=== PATIENT | female | born 1975 | race Caucasian/White ===

== ENCOUNTER 2017-07-27 18:23 | Emergency (ER) | payer MEDICAID, SELFPAY | END 2017-07-27 19:37 | disposition home or self-care (01) | PROVIDERS: Emergency Provider Emergency Medicine; Visit Provider Emergency Medicine | DX: S22.31XA Fracture of one rib, right side, initial encounter for closed fracture (principal); W10.9XXA Fall (on) (from) unspecified stairs and steps, initial encounter; Y92.018 Other place in single-family (private) house as the place of occurrence of the external cause; Z88.0 Allergy status to penicillin; Z72.0 Tobacco use | CPT/HCPCS: 71020; 71101; 99282 ==

== ENCOUNTER → 2017-09-01 09:32 | Outpatient (REF) | payer MEDICAID, SELFPAY ==
[2017-09-01 14:57] LABS: Basophils % 0.3 % (0.1-2.0); Eosinophils # 0.2 K/mm3 (0.0-0.4); Hematocrit 41.1 % (37.0-47.0); Hemoglobin 13.3 g/dL (12.2-16.2); Lymphocytes # 1.4 K/mm3 (0.7-4.5); Lymphocytes % 17.7 K/mm3 (10-50); Mean Corpuscular HGB Conc 32.4 g/dL (31.8-35.4); Mean Corpuscular Hemoglobin 30.1 pg (27.0-31.2); Mean Corpuscular Volume 92.7 fl (81-99); Mean Platelet Volume 7.8 fl (7.4-10.4); Monocytes # 0.4 K/mm3 (0.1-1.0); Monocytes % 4.7 % (1.7-9.3); Neutrophils # 6.1 K/mm3 (1.8-7.8); Neutrophils % 75.3 % (37.0-80.0); Platelet Count 367 K/mm3 (142-424); Red Blood Count 4.43 M/mm3 (4.20-5.40); Red Cell Distribution Width 12.2 % (11.5-17.5); White Blood Count 8.1 K/mm3 (4.8-10.8)
[2017-09-01 15:20] LABS: Hemoglobin A1C 5.5 % (0.0-7.0)
[2017-09-01 15:46] LABS: Erythrocyte Sedimentation Rate 109 mm/hr (0-20)
[2017-09-01 15:53] LABS: Alanine Aminotransferase 34 U/L (12-78); Albumin Level 3.1 gm/dL (3.4-5.0); Albumin/Globulin Ratio 0.6 (1.1-1.8); Alkaline Phosphatase 97 U/L (46-116); Anion Gap 12.9 mEq/L (5-15); Aspartate Amino Transferase 26 U/L (15-37); Bilirubin,Total 0.3 mg/dL (0.2-1.0); Blood Urea Nitrogen 8 mg/dL (7-18); Calcium 8.9 mg/dL (8.5-10.1); Carbon Dioxide 27 mmol/L (21.0-32.0); Chloride 101 mmol/L (98-107); Chol/HDL Ratio 3.6 (1-3.5); Cholesterol 162 mg/dL (140-200); Creatinine,Serum 0.81 mg/dL (0.55-1.02); Estimated Glomerular Filt Rate 78 ml/min (>60); Free T4 (Free Thyroxine) 1.27 ng/dl (0.76-1.46); GFR (African American) 95 ML/MIN (>60); Globulin 4.8 gm/dl (1.3-3.2); Glucose 107 mg/dL (74-106); HDL Cholesterol 45 mg/dL (29-89); LDL Cholesterol 100 mg/dL (0-130); Potassium 3.9 mmoL/L (3.5-5.1); Sodium 137 mmol/L (136-145); Thyroid Stimulating Hormone 3.63 uIU/ml (0.358-3.740); Total Protein,Serum 7.9 gm/dL (6.4-8.2); Triglycerides 85 mg/dL (30-200); VLDL Cholesterol 17 mg/dL (0-40)
[2017-09-02 18:31] LABS: Vitamin D 25 Hydroxy 21.5 ng/mL (30.0-100.0)
[2017-09-04 11:14] LABS: Anti-Jo-1 <0.2 AI (0.0-0.9); Anti-Smith Antibody <0.2 AI (0.0-0.9); Antichromatin Antibodies <0.2 AI (0.0-0.9); Antiscleroderma-70 Antibodies <0.2 AI (0.0-0.9); RNP Antibodies <0.2 AI (0.0-0.9); Sjogren's Anti-SS-A <0.2 AI (0.0-0.9); Sjogren's Anti-SS-B <0.2 AI (0.0-0.9)
[2017-09-04 18:09] LABS: Anti-Centromere B Antibodies <0.2 AI (0.0-0.9); Anti-Cyclic Citrullinated Pept >250 units (0-19); Anti-DNA (DS) Ab Qn 15 IU/mL (0-9)
== END ==
LOC: LAB 09:32
PROVIDERS: Visit Provider Nurse Practitioner Family
DX: M79.1 Myalgia (principal); R53.83 Other fatigue
CPT/HCPCS: 80053; 80061; 82652; 83036; 84439; 84443; 85025; 85651; 86038; 86431

== ENCOUNTER 2020-04-10 10:52 | Emergency (ER) | payer OTHER, SELFPAY ==
[2020-04-10 10:53] VITALS: BP 107/80; PULSE 109; RESP 18; TEMP 36.7; O2SAT 100; BMI 22.1
[2020-04-10 11:02] VITALS: BMI 20.7
--- NOTE | 2020-04-10 11:02 | CT_ITS ---
PROCEDURE: CT ABDOMEN PELVIS W CON CLINICAL INDICATION: ABD PAIN, right lower quadrant pain COMPARISON: CT ABDPELW CT ABD PELVIS W/ CONTRAST from 05/03/2016 TECHNIQUE: IV Contrast: 75ML OPTIRAY 350 Oral Contrast none given Axial images obtained with sagittal and coronal reformats. All CT scans at the facility use one or more dose reduction, viz: automated exposure control, ma/kV adjustment per patient size (including targeted exams where dose is matched to indication, i.e. head), or iterative reconstruction technique. FINDINGS: Lower thorax: No acute finding, cardiac size is normal. ABDOMEN: Liver: No masses or biliary dilatation. Gallbladder: Nondistended. No radio opaque stones. Pancreas: No masses or peripancreatic fluid collections. Spleen: unremarkable Adrenals: unremarkable Kidneys/ureters: The kidneys are normal in size and show symmetrical function both appearing normal. ABDOMEN & PELVIS: Stomach bowel: The stomach and duodenal sweep appear normal. The small bowel appears normal. There is a moderately large amount of stool in the ascending colon hepatic flexure and transverse colon. The descending and sigmoid colon are somewhat decompressed. Peritoneum: No abnormal fluid collections. No obvious inflammatory changes. No free air. Lymph nodes: No enlarged lymph nodes apparent. Vasculature: No evidence of abdominal aortic aneurysm. No retroperitoneal hemorrhage evident. Bones: No acute fracture PELVIS: Reproductive: The uterus is upper limits of normal in size and shows slightly heterogenic enhancement. There is a cystic lesion right adnexa measuring 2.8 x 3.2 x 2.9 cm likely an ovarian cyst. There are bilateral tubal ligation clips. Bladder: The urinary bladder is decompressed. There is no free fluid in the pelvis. Appendix: There are no findings to suggest appendicitis. IMPRESSION: Moderate amount right-sided stool, small right ovarian cyst, no other significant abnormality noted Dictated by: Dr. Woody Shelton MD 04/10/2020 12:27 Dr. Woody Shelton MD in [place] 04/10/2020 12:27
--- NOTE | 2020-04-10 11:02 | HMH.EDGENADL ---
ED Disposition Clinical Impression: Pyelonephritis, Ruptured ovarian cyst Disposition: Home, Self-Care Condition on Discharge: Good Additional Instructions: You were seen on an emergency basis. It is very important that you follow up with your primary care provider and/or specialist as we discussed within 2 days. All labs and imaging were obtained and interpreted here to rule out life threatening emergencies, but your final results should be reviewed by your primary doctor at your follow up appointment. Please return to the emergency department if any of your symptoms worsen, or if they do not improve as we discussed. Please follow-up with your sales lead generator on Monday as we discussed Prescriptions: Cefdinir [Omnicef 300mg Capsule] 300 mg PO BID #20 cap Transmission Status: Pending to [facility] #[id number] Referrals: Ankit Corley MD [Primary Care Provider] - - Critical Care Critical Care Time: No Attestation: On 04/10/20, the high probability of a clinically significant, sudden or life threatening deterioration of the following system(s) required my full and direct attention, intervention and personal management. The time I documented below is in addition to time spent performing reported procedures but includes the following listed in this critical care notation. Medical Decision Making - Medical Records Medical records reviewed: Yes: I reviewed the patient's medical records. - Curly Inquiry Pt receiving controlled substance: No Vital Signs: 04/10/20 10:53 04/10/20 11:23 04/10/20 12:25 Temperature 98.0 F Temperature Source Oral Pulse Rate [Left Radial] 109 H 76 73 Respiratory Rate 18 14 14 Blood Pressure [Right Arm] 107/80 L 136/112 H 110/77 Blood Pressure Mean [Right Arm] 89 120 88 Blood Pressure Source [Right Arm] Automatic Cuff Automatic Cuff Automatic Cuff Blood Pressure Position [Right Arm] Sitting Supine Sitting 02 Sat by Pulse Oximetry 100 98 100 Oxygen Delivery Method Room Air Room Air Room Air - Lab Data Lab results reviewed: Yes: I reviewed the patient's lab results. Lab Results 04/10/20 11:10: Urine Color Yellow, Urine Appearance Clear, Urine pH 5.5, Ur Specific [place] >= 1.030, Urine Protein Negative, Urine Glucose (UA) Negative, Urine Ketones Negative, Urine Blood 2+, Urine Nitrate Negative, Urine Bilirubin Negative, Urine Urobilinogen 0.2, Ur Leukocyte Esterase 1+ A, Urine RBC 3-5, Urine WBC 10-20, Ur Squamous Epith Cells 20-50, Urine Bacteria 3+, Urine Mucus 1+ 04/10/20 11:15: WBC 11.9 H, RBC 4.42, Hgb 13.5, Hct 38.7, MCV 87.5, MCH 30.5, MCHC 34.9, RDW 14.3, Plt Count 302, MPV 7.9, Neut % (Auto) 79.5, Lymph % (Auto) 14.7, [place] % (Auto) 3.4, Eos % (Auto) 2.2, Baso % (Auto) 0.3, Neut # (Auto) 9.5 H, Lymph # (Auto) 1.7, [place] # (Auto) 0.4, Eos # (Auto) 0.3, Baso # (Auto) 0.0 04/10/20 11:15: Sodium 142, Potassium 3.8, Chloride 105, Carbon Dioxide 27, Anion Gap 13.8, BUN 11, Creatinine 0.60, Estimated Creat Clear 130, Estimated GFR 110, Est GFR ( Amer) 133, Glucose 106 H, Calcium 10.2, Total Bilirubin 0.5, AST 22, ALT 14, Alkaline Phosphatase 78, Total Protein 9.0 H, Albumin 4.7, Globulin 4.3 H, Albumin/Globulin Ratio 1.1 Result diagrams: 04/10/20 11:15 04/10/20 11:15 Orders (Tests/Meds): ED MEDICATIONS Generic Name Dose Route Start Last Admin Trade Name Freq PRN Reason Stop Dose Admin Ceftriaxone Sodium 1 gm/ 50 mls @ 100 mls/hr 04/10/20 13:27 04/10/20 13:30 Sodium Chloride IV 04/10/20 13:56 100 mls/hr ONCE ONE Administration Protocol Discontinued Medications Generic Name Dose Route Start Last Admin Trade Name Freq PRN Reason Stop Dose Admin Ioversol 75 ml 04/10/20 12:11 04/10/20 12:11 Rad-Optiray 350 100ml Vial IV 04/10/20 12:12 75 ml ONCE ONE Administration Protocol Morphine Sulfate 4 mg 04/10/20 11:05 04/10/20 11:08 Morphine 4mg/Ml Syringe IV 04/10/20 11:06 4 mg ONCE ONE Administration Sodium Chloride
--- NOTE | 2020-04-10 11:04 | US_ITS ---
PROCEDURE: US TRANSVAGINAL CLINICAL INDICATION: ABD PAIN, right lower quadrant pain for 2 days COMPARISON: CT CT ABDOMEN PELVIS W CON from 04/10/2020 with IV contrast FINDINGS: The uterus is normal in size and shows homogeneous echogenicity. The endometrial echo is normal. The left ovary is normal size and shows 2 small follicular cysts. There is a cystic lesion involving the right ovary with internal septations and with some tenderness on exam and hemorrhagic cyst is a possibility. There is no free fluid in the cul-de-sac. IMPRESSION: Normal uterus possible hemorrhagic cyst right ovary, suggest clinical correlation and possibly follow-up study in 4-6 weeks Dictated by: Dr. Woody Shelton MD 04/10/2020 13:45 Dr. Woody Shelton MD in [place] 04/10/2020 13:45
--- NOTE | 2020-04-10 11:08 | PC.NURSE ---
radiology notified of ct and us orders
[2020-04-10 11:12] LABS: Microscopic, Urine URINE MICROSCOPIC (MICROSCOPIC)
[2020-04-10 11:13] LABS: Appearance,Urine CLEAR (Clear); Bilirubin,Urine Negative (Negative); Blood, Urine 2+ (Negative); Color,Urine YELLOW (Yellow); Glucose,Urine (UA) Negative (Negative); Ketones,Urine Negative (Negative); Leukocyte Esterase,Urine 1+ (Negative); Nitrate,Urine Negative (Negative); PH,Urine 5.5 (5.0-8.5); Protein,Urine Negative (Negative); Specific Gravity, Urine >= 1.030 (1.005-1.030); Urobilinogen,Urine 0.2 EU/dl (0.2)
[2020-04-10 11:23] VITALS: BP 136/112; PULSE 76; RESP 14; O2SAT 98
[2020-04-10 11:24] LABS: Bacteria,Urine 3+ /lpf
[2020-04-10 11:25] LABS: Mucus,Urine 1+ /lpf; Squamous Epithelial Cell,Urine 20-50 #/hpf (0-5)
[2020-04-10 11:25] LABS: Basophils % 0.3 % (0.1-2.0); Eosinophils # 0.3 K/mm3 (0.0-0.4); Eosinophils % 2.2 % (0.1-12.0); Hematocrit 38.7 % (37.0-47.0); Hemoglobin 13.5 g/dL (12.2-16.2); Lymphocytes # 1.7 K/mm3 (0.7-4.5); Lymphocytes % 14.7 % (10-50); Mean Corpuscular HGB Conc 34.9 g/dL (31.8-35.4); Mean Corpuscular Hemoglobin 30.5 pg (27.0-31.2); Mean Corpuscular Volume 87.5 fl (81-99); Mean Platelet Volume 7.9 fl (7.4-10.4); Monocytes # 0.4 K/mm3 (0.1-1.0); Monocytes % 3.4 % (1.7-9.3); Neutrophils # 9.5 K/mm3 (1.8-7.8); Neutrophils % 79.5 % (37.0-80.0); Platelet Count 302 K/mm3 (142-424); Red Blood Count 4.42 M/mm3 (4.20-5.40); Red Cell Distribution Width 14.3 % (11.5-17.5); White Blood Count 11.9 K/mm3 (4.8-10.8)
[2020-04-10 11:26] LABS: Chloride 105 mmol/L (98-107); Potassium 3.8 mmoL/L (3.5-5.1); Sodium 142 mmol/L (136-145)
[2020-04-10 11:29] LABS: Alanine Aminotransferase 14 U/L (12-78); Albumin Level 4.7 g/dl (3.5-5.0); Albumin/Globulin Ratio 1.1 (1.1-1.8); Alkaline Phosphatase 78 U/L (38-126); Anion Gap 13.8 mEq/L (5-15); Aspartate Amino Transferase 22 U/L (14-36); Bilirubin,Total 0.5 mg/dl (0.2-1.3); Blood Urea Nitrogen 11 mg/dl (7-17); Calcium 10.2 mg/dl (8.4-10.2); Carbon Dioxide 27 mmol/L (22.0-30.0); Creatinine Clearance Estimated 130 mL/min (50-200); Estimated Glomerular Filt Rate 110 ml/min (>60); GFR (African American) 133 ML/MIN (>60); Globulin 4.3 g/dL (1.3-3.2); Glucose 106 mg/dl (74-100)
--- NOTE | 2020-04-10 11:44 | PC.NURSE ---
PT GOING TO RAD
--- NOTE | 2020-04-10 12:05 | PC.NURSE ---
vital signs not taken, patient is off floor to radiology
[2020-04-10 12:25] VITALS: BP 110/77; PULSE 73; RESP 14; O2SAT 100
[2020-04-10 13:51] VITALS: BP 106/69; PULSE 74; O2SAT 98
[2020-04-10 14:17] VITALS: BP 106/69; PULSE 74; RESP 19; TEMP 36.7; O2SAT 98
== END 2020-04-10 14:20 | disposition home or self-care (01) ==
PROVIDERS: Emergency Provider Physician Assistant; PCP Emergency Medicine
DX: N10 Acute pyelonephritis (principal); N83.202 Unspecified ovarian cyst, left side; Z87.442 Personal history of urinary calculi; F17.290 Nicotine dependence, other tobacco product, uncomplicated; Z90.09 Acquired absence of other part of head and neck; Z88.0 Allergy status to penicillin; Z88.6 Allergy status to analgesic agent
CPT/HCPCS: 74177; 76830; 80053; 81001; 85025; 87086; 96365; 96367; 96374; 96375; 99284; Q9967

== ENCOUNTER → 2020-05-17 10:13 | Outpatient (CLI) | payer OTHER, SELFPAY ==
[2020-05-17 11:25] LABS: Basophils # 0.1 K/mm3 (0-0.2); Basophils % 0.4 % (0.1-2.0); Eosinophils # 0.1 K/mm3 (0.0-0.4); Eosinophils % 0.8 % (0.1-12.0); Hematocrit 38.2 % (37.0-47.0); Hemoglobin 11.8 g/dL (12.2-16.2); Lymphocytes # 3.8 K/mm3 (0.7-4.5); Lymphocytes % 31.6 % (10-50); Mean Corpuscular HGB Conc 30.9 g/dL (31.8-35.4); Mean Corpuscular Hemoglobin 28.7 pg (27.0-31.2); Mean Corpuscular Volume 92.8 fl (81-99); Mean Platelet Volume 7.5 fl (7.4-10.4); Monocytes # 0.4 K/mm3 (0.1-1.0); Monocytes % 3.5 % (1.7-9.3); Neutrophils # 7.7 K/mm3 (1.8-7.8); Neutrophils % 63.7 % (37.0-80.0); Platelet Count 337 K/mm3 (142-424); Red Blood Count 4.12 M/mm3 (4.20-5.40); Red Cell Distribution Width 13.5 % (11.5-17.5)
[2020-05-17 11:43] LABS: Chloride 105 mmol/L (98-107); Sodium 141 mmol/L (136-145)
[2020-05-17 11:44] LABS: Potassium 3.2 mmoL/L (3.5-5.1)
[2020-05-17 11:46] LABS: Blood Urea Nitrogen 8 mg/dl (7-17); Estimated Glomerular Filt Rate 92 ml/min (>60); GFR (African American) 111 ML/MIN (>60)
[2020-05-17 11:47] LABS: Anion Gap 13.2 mEq/L (5-15); Calcium 9.5 mg/dl (8.4-10.2); Carbon Dioxide 26 mmol/L (22.0-30.0); Glucose 98 mg/dl (74-100)
[2020-05-17 12:11] LABS: HCG Qualitative, Serum Negative (Negative)
[2020-05-17 13:40] LABS: Coronavirus 19 IgG Antibody Negative (Negative); Coronavirus 19 IgM Antibody Negative (Negative)
== END ==
PROVIDERS: PCP Emergency Medicine; Visit Provider Nurse Practitioner Obstetrics & Gynecology
DX: Z01.89 Encounter for other specified special examinations (principal); N92.0 Excessive and frequent menstruation with regular cycle
CPT/HCPCS: 36415; 80048; 84703; 85025; 86328

== ENCOUNTER 2020-05-18 05:29 | Day surgery (SDC) | payer OTHER, SELFPAY ==
[2020-05-18] VITALS (13 sets, daily range): BP systolic 110–140; BP diastolic 67–92; PULSE 56–73; RESP 16–18; TEMP 36.3–43; O2SAT 97–100; BMI 22.8
--- NOTE | 2020-05-18 07:58 | P.OP_ITS ---
Date of procedure: 05/18/20 Pre-op Diagnosis:: Menorrhagia Post-op Diagnosis:: Menorrhagia Procedure performed:: Hysteroscopy, dilation and curettage, NovaSure ablation Surgeon:: Rudy Mariscal MD AEROSPACE CONTROL AND WARNING SYSTEMS:: Fidel Whitlock Anesthesia: LMA Estimated blood loss (mL): 50 Clinical Note:: She is a 44-year-old lady who complains of extremely heavy periods. An ul trasound was essentially normal endometrial biopsy was negative for hyperplasia or endometrial carcinoma. After having discussed the risks and benefits she elected to have a hysteroscopy, D&C and NovaSure ablation. Operative findings:: She had an anteverted somewhat bulky uterus. The uterus sounded to 8 cm. The endometrium was quite lush and was quite erythematous possibly consistent with chronic endometritis. Operative note:: She was taken to the operating room where LMA anesthesia was found be adequate. She was prepped and draped in the normal sterile fashion in the lithotomy position. A weighted speculum was placed in the vagina and the anterior lip of the cervix was grasped with a tenaculum. The cervix was then dilated to approximately 6 mm. I then inserted a hysteroscope into the uterine cavity and the findings were as previously dictated. I then performed a gentle curettage with a medium curette. I then sounded the uterus and determine the length of the uterus. This was placed into the NovaSure device. I then inserted the NovaSure device and determine the width of the endometrial cavity. The length of the uterine cavity was 6 cm and the width was 4.1 cm. I then ran the device through its program. I further inspected the endometrial cavity and was found to be completely charred. I then injected 30 cc of 0.5% ropivacaine at the 3:00, 5:00, 7:00, and 9:00 positions of the cervix. She tolerated procedure well and was taken to the recovery room in excellent condition. All sponge and instrument counts were correct. The estimated blood loss was less than 50 cc. Condition: stable Disposition: PACU Specimens:: Endometrial curettings Complications:: None
--- NOTE | 2020-05-18 08:04 | P.PN_ITS ---
[facility] Anesthesia Checklist - Patient Identification Patient Identification: Arm Band - Structural Data Admitted From: Home Planned Operative Procedure/s: Hysteroscopy, D&C Novasure Ablation Consent for Planned Operative Procedure(s) Verified: Yes Verified Documents: Surgical Consent, History and Physical - NPO Status Verified Time NPO: 00:00 - Additional verifications Anesthesia Reactions: No Hx Blood Transfusions: No Blood Transfusion Reaction: No - Airway Assessment C-Spine Mobility Assessed: Yes (mp2) TMJ Mobility Assessed: Yes Dentition: Edentulous - Neurological Assessment Level of Consciousness: Awake, Alert - Anesthesia Plan Anesthesia Risk discussed: Yes Anesthesia Plan: Verified ASA Class: II Anesthesia Type: General [facility] History I have reviewed the patient's past medical history: Yes Medical History: Reports:: Asthma Denies:: Cancer, Diabetes Mellitus Type 1, Diabetes Mellitus Type 2, Internal Pacemaker, MRSA, Seizures *Have you ever received a pneumonia vaccine?: No *Have you received a flu vaccine this season?: No Other Medical History: Reports: Arthritis. Denies: Blood Transfusion Reaction Anesthesia experience/problems:: nac Laterality Cases: Bilateral: Tonsillectomy Other Surgeries: Yes: Tubal Ligation. No: Pacemaker Amputation: No Fractures: Yes (2 RIBS) - *Social History Last grade of school completed: High school graduate Smoking Status: Current every day smoker Tobacco Type: cigarettes # Packs/Day (cigarettes): 1 Alcohol Intake: never Alcohol Intake Frequency:: holidays/special occasions only Substance Use Type: crack/cocaine, heroin, IV drugs *Occupational Status:: unemployed Housing: house Household Members: spouse *Travel in the last 8 weeks: None Family Hx:: Cancer, Coronary Artery Disease, Diabetes, Hyperlipidemia, Hypertension
--- NOTE | 2020-05-18 08:05 | HMH.ANESI ---
[facility] Anesthesia Record Part I Intake, IV Amount: 800 Estimated blood loss (mL): 25 Urine output (mL): 200 Blood Pressure: 133/73 SaO2: 98 Pulse Rate: 73 Respiratory Rate: 16 Temperature: 97.8 F Patient is:: Drowsy, Stable Stable to PACU at:: 08:00
--- NOTE | 2020-05-18 08:50 | PC.NURSE ---
0833-detailed report called to DAVID Langston 0835-pt transported to post op via stretcher w/remberto rails up and left in care of DAVID Langston with bed locked in lowest position, vss, pt stable
--- NOTE | 2020-05-18 08:51 | SUR.PREOP ---
Percocet 5/325 1 tablet for C/O pain at [address] Lu post op orders.
--- NOTE | 2020-05-18 17:27 | P.PN_ITS ---
[facility] Anesthesia Record Part II Discharge Time: 08:35 Destination: Surgical Day Care (OP Surgery) PACU nurse assessment reviewed?: Yes Patient Condition:: Good Anesthesia Complications:: None Swallowing reflex intact?: Yes Cyanosis?: No Blood Pressure: 117/76 Pulse Rate: 71 Temperature: 97.9 F Mental Status: Alert & Oriented Pain level:: 0 Nausea and/or vomitting:: None Intake, IV Amount: 0
== END 2020-05-18 09:13 | disposition home or self-care (01) ==
LOC: OR 05:30
PROVIDERS: PCP Emergency Medicine; Visit Provider Nurse Practitioner Obstetrics & Gynecology
PROC: 0U5B8ZZ Destruction of Endometrium, Via Natural or Artificial Opening Endoscopic (ICD-10-PCS; CPT 58563; principal; 2020-05-18 07:30)
DX: N92.0 Excessive and frequent menstruation with regular cycle (principal); N85.4 Malposition of uterus; J45.909 Unspecified asthma, uncomplicated; M19.90 Unspecified osteoarthritis, unspecified site; Z90.89 Acquired absence of other organs; Z72.0 Tobacco use; F11.90 Opioid use, unspecified, uncomplicated; F14.90 Cocaine use, unspecified, uncomplicated; F19.90 Other psychoactive substance use, unspecified, uncomplicated; Z82.49 Family history of ischemic heart disease and other diseases of the circulatory system; Z83.438 Family history of other disorder of lipoprotein metabolism and other lipidemia; Z83.3 Family history of diabetes mellitus; Z80.9 Family history of malignant neoplasm, unspecified
CPT/HCPCS: 58563; 96374; J2405

== ENCOUNTER 2021-06-27 13:12 | Emergency (ER) | payer OTHER, SELFPAY ==
[2021-06-27 13:34] VITALS: BMI 24.3
[2021-06-27 13:35] VITALS: BP 124/91; PULSE 82; RESP 20; TEMP 36.8; O2SAT 100; BMI 26.6
[2021-06-27 13:48] LABS: Coronavirus 19, PCR Not Detected (NotDetected); Influenza A, PCR Not Detected (NotDetected); Influenza B, PCR Not Detected (NotDetected)
--- NOTE | 2021-06-27 13:48 | HMH.EDGENADL ---
ED Disposition Clinical Impression: Suspected COVID-19 virus infection, Exposure to COVID-19 virus Disposition: Home, Self-Care Condition on Discharge: Fair Instructions: DI for COVID-19 (Suspected or Confirmed ) Additional Instructions: Tylenol or ibuprofen as needed for pain or fever. COVID-19 Quarantine: Quarantine if you have been in close contact (within 6 feet of someone for a cumulative total of 15 minutes or more over a 24-hour period) with someone who has COVID-19, unless you have been fully vaccinated. People who are fully vaccinated do NOT need to quarantine after contact with someone who had COVID-19 unless they have symptoms. However, fully vaccinated people should get tested 3-5 days after their exposure, even if they don?t have symptoms and wear a mask indoors in public for 14 days following exposure or until their test result is negative. What to do Stay home for 14 days after your last contact with a person who has COVID-19. Watch for fever (100.4?F), cough, shortness of breath, or other symptoms of COVID-19. If possible, stay away from people you live with, especially people who are at higher risk for getting very sick from COVID-19. After quarantine: Watch for symptoms until 14 days after exposure. If you have symptoms, immediately self-isolate and contact your local public health authority or healthcare provider. You may be able to shorten your quarantine Your local public health authorities make the final decisions about how long quarantine should last, based on local conditions and needs. Follow the recommendations of your local public health department if you need to quarantine. Options they will consider include stopping quarantine: After day 10 without testing OR After day 7 after receiving a negative test result (test must occur on day 5 or later) Referrals: Ankit Corley MD [Primary Care Provider] - - Critical Care Critical Care Time: No Attestation: On 06/27/21, the high probability of a clinically significant, sudden or life threatening deterioration of the following system(s) required my full and direct attention, intervention and personal management. The time I documented below is in addition to time spent performing reported procedures but includes the following listed in this critical care notation. Medical Decision Making - Curly Inquiry Pt receiving controlled substance: No Vital Signs: 06/27/21 13:35 Temperature 98.3 F Temperature Source Oral Pulse Rate [Left] 82 Respiratory Rate 20 Blood Pressure [Right Arm] 124/91 H Blood Pressure Mean [Right Arm] 102 02 Sat by Pulse Oximetry 100 - Lab Data Lab Results 06/27/21 13:38: SARS-CoV-2 (PCR) Not detected, Influenza A Untype (PCR) Not detected, Influenza Type B (PCR) Not detected Medical Decision Narrative: Patient has negative Covid result, but clinically has Covid. I advised her to get tested again within the next 48 hours. Discussed monoclonal antibody therapy if she obtains a positive test. Advised her that it is very effective at reducing the risk of severe Covid illness, hospitalization, and . She understands this and declines monoclonal antibody therapy. Declines any medication emergency department, states she will take ibuprofen when she gets home. Discussed isolation/quarantine. General Adult HPI - General Stated complaint: covid symptoms, loss of voice Time Seen by Provider: 06/27/21 15:10 - History of Present Illness HPI narrative: Patient presents with Covid symptoms and a known exposure to Covid. She says her is asymptomatic, but had a test performed a couple of days ago to have a surgical procedure performed, and he was notified that he is positive. The patient began getting symptomatic yesterday. She has a slight cough, hoarse voice, mild sore throat, loss of taste and smell, body aches, and headache. Denies shortness of breath. She has not had a Covid vaccine.
[2021-06-27 14:30] VITALS: BP 131/76; PULSE 74; RESP 18; TEMP 36.9; O2SAT 98
[2021-06-27 15:21] VITALS: BP 124/84; PULSE 98; RESP 20; TEMP 36.8
== END 2021-06-27 16:12 | disposition home or self-care (01) ==
PROVIDERS: Emergency Provider Emergency Medicine; PCP Emergency Medicine
DX: Z20.822 Contact with and (suspected) exposure to COVID-19 (principal); J45.909 Unspecified asthma, uncomplicated; R05.1 Acute cough; F17.210 Nicotine dependence, cigarettes, uncomplicated
CPT/HCPCS: 99283; C9803; U0003; U0005

== ENCOUNTER 2025-03-05 08:54 | Emergency (ER) | payer SELFPAY ==
[2025-03-05 09:11] VITALS: BP 130/86; PULSE 83; RESP 20; TEMP 36.8; O2SAT 100; BMI 23.0
--- NOTE | 2025-03-05 09:35 | XR_ITS ---
FINAL REPORT CLINICAL HISTORY: fall 3 mo ago, knee pain with diff bearing wt FINDINGS: AP and lateral views of the left tibia and fibula were obtained. There is no prior exam for comparison. There is no acute osseous abnormality of the tibia or fibula. There is degenerative disease of the knee and ankle. There is no acute soft tissue abnormality. IMPRESSION: No acute osseous abnormality of the left tibia or fibula. Reviewed, Interpreted and Dictated by Anny Yeager MD Transcribed by Eleanor Hay Authenticated and [facility]
--- NOTE | 2025-03-05 09:35 | XR_ITS ---
FINAL REPORT CLINICAL HISTORY: fall 3 mo ago, knee pain with diff bearing wt COMPARISON: None FINDINGS: LEFT FEMUR Two views demonstrate no acute fracture of the femur. The hip is intact. There is a joint effusion at the knee. No acute soft tissue abnormality is seen. IMPRESSION: No femur fracture. Joint effusion at the knee. Please see the knee report. Reviewed, Interpreted and Dictated by Anny Yeager MD Transcribed by Eleanor Hay Authenticated and [facility][1]
--- NOTE | 2025-03-05 09:35 | XR_ITS ---
FINAL REPORT CLINICAL HISTORY: fall 3 mo ago, knee pain with diff bearing wt FINDINGS: AP, lateral and oblique views of the left knee were obtained. There is no prior exam for comparison. There is no fracture or dislocation. There is degenerative joint disease, most pronounced in the lateral compartment. The soft tissues are normal. There is a large joint effusion. IMPRESSION: Large joint effusion without visualized fracture. Consider CT or MRI. Reviewed, Interpreted and Dictated by Anny Yeager MD Transcribed by Eleanor Hay Authenticated and [facility]
--- NOTE | 2025-03-05 09:43 | ED_ITS ---
Discharge Plan Disposition Patient Disposition: Home, Self-Care Condition: Good Prescriptions Prescriptions: New prednisone 20 mg tablet 40 mg PO DAILY 5 Days Qty: 10 0RF diclofenac sodium 75 mg tablet,delayed release (DR/EC) 75 mg PO BID 14 Days Qty: 28 0RF Referrals Follow up/Referrals: Tavares Mendez DO [Staff Physician, Orthopedics] - See instructions Provider,Referral, [Primary Care Provider, Medical] - See instructions Activity Restrictions/Add. Instructions Additional Instructions/Restrictions: You were evaluated in the emergency department today. Please follow-up closely with orthopedics on an outpatient basis. Call their office to schedule an appointment. They can help with your chronic knee pain. I am also prescribing you medications to help get you through and help reduce the inflammation and swelling. Return to the emergency department for new or worsening symptoms. Clinical Impressions Clinical Impression: Osteoarthritis, Effusion of knee Stand Alone Forms Stand Alone Forms: Work/School Release Instructions Patient Instructions: DI for Osteoarthritis, DI for Knee Effusion Print Language Print Language: Latvian Discharge ED Provider: Caroline Vaca General Adult HPI General Chief complaint: Extremity Injury, Lower Stated complaint: Pain/ swelling both knees, hard to walk Time Seen by Provider: 03/05/25 09:35 Mode of Arrival: Ambulatory Source of Information: Patient Description of Symptoms (Recalled from ER Triage Doc. by RN): pt is having bilateral knee pain and swelling for the last three days, pt states left one is worse, pms is intact bilateral desnies any fever History of Present Illness HPI narrative: This patient is a 49-year-old female who denies significant past medical history presenting to the emergency department for evaluation of concern for bilateral knee pain. 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 She states she had a fall 3 months ago that worsened her left knee pain, and she has been putting most of her weight on her right knee since then causing right knee pain that she thinks is compensatory. She states that it feels like she has [id number] arthritis and is requesting drainage. No fevers, redness, warmth, or other concerns. No falls since 3 months ago. No new numbness, tingling, or other issue. She has not seen a PCP or Ortho for this. Related Data Previous Rx's ?Medication ?Instructions ?Recorded diclofenac sodium 75 mg 75 mg PO BID 2 weeks #28 tab s 03/05/25 tablet,delayed release prednisone 20 mg tablet 40 mg (2 x 20 mg) PO DAILY 5 days 03/05/25 #10 tabs Allergies Allergy/AdvReac Type Severity Reaction Status Date / Time azithromycin (AZITHROMYCIN) Allergy Unknown Verified 06/17/20 09:16 chocolate flavor Allergy Unknown Verified 06/17/20 09:16 codeine (CODEINE) Allergy Unknown Verified 06/17/20 09:16 Penicillins (PENICILLINS) Allergy Unknown Verified 06/17/20 09:16 propoxyphene (PROPOXYPHENE) Allergy Unknown Verified 06/17/20 09:16 PFSH [facility] Disclaimer: The information contained in this section may have been updated after the patient was seen, as this information can be updated by other users. Medical History Rheumatoid arthritis Social History Smoking Status: Current every day smoker tobacco type: cigarettes packs per day: 1 second hand exposure: Yes alcohol intake: never substance use type: crack/cocaine, heroin and IV drugs current occupational status: unemployed Travel in the last 8 weeks?: None household members: spouse housing: house current occupational exposures/hazards: No caffeine: No Have you lived/traveled outside [place] in past 30 days?: No Contact w/someone who lives/traveled outside [place] past 30 days?: No Exposure to someone with infectious disease in past 14 days?: No Do you have a fever (greater than 100.4 F or 38 C)?: No Have you tested positive for COVID-19?: No Exposed to someone with COVID-19 in past 14 days?: No Do you have a sore throat?: No Do you have a cough?: No Do you have any weakness?: No Do you have any diarrhea?: No Are you experiencing any unusual bleeding?: No Do you have any muscle aches/pain?: No Do you have any abdominal pain?: No Are you experiencing loss of taste or smell?: No Other Medical History Have you received the Flu Vaccine for this season: No Have you received the Pneumonia Vaccine: No ROS Obtained: Yes All systems reviewed & no additional complaints except as documented Physical Exam General General appearance: alert and in no apparent distress Head Head exam: atraumatic and normocephalic Eye Eye exam: Present normal appearance, PERRL and EOMI ENT ENT exam: Present normal exam, normal oropharynx, mucous membranes moist and normal external ear exam Neck Neck exam: Present normal inspection, full ROM and trachea midline; Absent tenderness Chest Chest inspection: Present normal inspection and symmetric chest wall rise; Absent tenderness Respiratory Respiratory exam: Present normal lung sounds bilaterally; Absent respiratory distress, wheezes, stridor or accessory muscle use Cardiovascular Cardiovascular exam: Present regular rate and normal rhythm Abdominal Exam Abdominal exam: Present soft; Absent distention, tenderness or guarding Extremities Exam Extremities exam: Present tenderness, normal capillary refill, joint swelling and other (Tenderness to palpation of both knees with joint effusion. Range of motion intact. No redness, warmth, or skin color changes. No rashes or lesions. She is neurovascularly intact distally with all compartments soft. No appreciable significant instability); Absent edema Back Exam Back exam: Present normal inspection and full ROM; Absent tenderness Neurological Exam Neurological exam: Present alert, oriented X3, CN II-XII intact and normal gait; Absent motor sensory deficit Psychiatric Psychiatric exam: Present normal affect and normal mood Skin Skin exam: Present warm and dry Medical Decision Making Medical Records Medical records reviewed: Yes I reviewed the patient's medical records. Screening: Per USPSTF and CDC recommendations, given the prevalence of disease in our region, it is our hospital?s policy to screen for HIV and viral Hepatitis for all patients aged 18 and over and those with ongoing risk factors. Curly Inquiry Pt receiving controlled substance: No Vital Signs: 03/05/25 09:11 03/05/25 11:35 Temperature 98.2 F 98.0 F Temperature Source Oral Pulse Rate 83 Pulse Rate [Left Radial] 83 Respiratory Rate 20 20 Blood Pressure 130/86 Blood Pressure [Right Arm] 130/86 Blood Pressure Mean [Right Arm] 100 02 Sat by Pulse Oximetry 100 Oxygen Delivery Method Room Air Lab Data Lab results reviewed: Yes I reviewed the patient's lab results. Orders (Tests/Meds): ED MEDICATIONS Discontinued Medications Generic Name Dose Route Start Last Admin Trade Name Freq PRN Reason Stop Dose Admin Acetaminophen 1,000 mg 03/05/25 09:35 03/05/25 09:47 Acetaminophen 500mg Tab PO 03/05/25 09:36 1,000 mg ONCE ONE Administration Ketorolac Tromethamine 30 mg 03/05/25 09:35 03/05/25 09:47 Ketorolac 30mg/Ml Vial IM 03/05/25 09:36 30 mg ONCE ONE Administration ORDERS Category Date Time Status Femur XR left 2 views [XR femur LT 2V] Stat Exams 03/05/25 09:35 Completed Knee XR left 3 views [XR knee LT 3V] Stat Exams 03/05/25 09:35 Completed Tibia/fibula XR left 2 views [XR tibia fibula LT 2V] Exams 03/05/25 09:35 Completed Stat Medical Decision Narrative: In summary, this patient is a 49-year-old female presenting to the Emergency Department for evaluation of bilateral knee pain, left greater than right. Differential diagnoses considered include but are not limited to osteoarthritis, cartilaginous injury, ligamentous injury, occult fracture, Garcia's cyst. Ruling out the most morbid conditions drove assessment. On exam, the patient is well-appearing with no redness, warmth. She does have joint effusion but has intact range of motion. I am not concerned for any sort of septic arthritis based on clinical exam and reassuring history as well as the chronicity of symptoms. I feel she likely has osteoarthritis versus a possible occult injury from her fall about 3 months ago. Her left knee pain is way worse than the right, and she thinks the right is only compensatory because walking weird because of the left knee pain. Workup included x-rays of the left femur, knee, and tib-fib. She was given IM Toradol and oral Tylenol for symptomatic improvement of pain. She is requesting drainage of her knees, but she has no findings concerning for septic arthritis on exam so I do not feel that drainage in the emergency department is appropriate at all.. I independently interpreted x-ray prior to the radiologist read and noted joint effusion without acute fracture. Please see their read for final interpretation. Overall, I feel the patient is appropriate for discharge home with close orthopedics follow-up for her chronic knee pain and joint effusions. I prescribed her prednisone and diclofenac to help with the pain. She was given instructions for close follow-up, strict return precautions, and she was discharged after all questions were answered. Critical Care Critical Care Time Critical Care Time: No
[2025-03-05] MEDS: KETOROLAC 30MG/ML VIAL 30 MG IM (09:47)
[2025-03-05] MEDS: ACETAMINOPHEN 500MG TAB 1000 MG PO (09:47)
[2025-03-05 11:35] VITALS: BP 130/86; PULSE 83; RESP 20; TEMP 36.7; O2SAT 100
== END 2025-03-05 11:35 | disposition home or self-care (01) ==
PROVIDERS: Emergency Provider Emergency Medicine
DX: M25.469 Effusion, unspecified knee (principal); M19.90 Unspecified osteoarthritis, unspecified site
CPT/HCPCS: 73552; 73562; 73590; 96372; 99284; J1885